=== PATIENT | female | born 2000 | race Caucasian/White ===

== ENCOUNTER → 2024-06-19 09:36 | Outpatient (CLI) | payer OTHER, SELFPAY ==
[2024-06-19 10:49] LABS: Add Manual Diff / Slide Review NO; Basophils Absolute Auto 0 /uL (0-100); Basophils Percent Auto 0.2 % (0-2); Eosinophils Absolute Auto 100 /uL (0-450); Eosinophils Percent Auto 1.3 % (2-4); Hematocrit 42.4 % (36-46); Lymphocytes Absolute Auto 1900 /uL (1100-4500); Lymphocytes Percent Auto 26.4 % (25-40); Mean Corpuscular HGB Conc 35.4 % (30-36); Mean Corpuscular Hemoglobin 29.2 PG (26-34); Mean Corpuscular Volume 82.4 fL (80-100); Monocytes Absolute Auto 400 /uL (0-900); Neutrophils Absolute Auto 4800 /uL (1500-7000); Neutrophils Percent Auto 67.1 % (50-75); Platelet Count 238 X10^3/uL (150-400); Red Blood Cell Count 5.15 X10^6/uL (4.0-5.2); Red Cell Distribution Width 13.1 % (11.6-14.8); White Blood Cell Count 7.1 X10^3/uL (4.5-11.0)
[2024-06-19 10:59] LABS: Hemoglobin A1C% w Est Avg Glu 4.7 % (4.0-6.0)
[2024-06-19 11:14] LABS: HEMOLYSIS < 15 (0-50); Iron 77 ug/dL (37-170)
[2024-06-19 11:16] LABS: Alanine Aminotransferase 23 IU/L (<35); Albumin Globulin Ratio 1.8 (1.0-2.8); Alkaline Phosphatase 65 U/L (38-126); Aspartate Aminotransferase 27 IU/L (14-36); BUN Creatinine Ratio 12.8 (6-22); Bilirubin Total 0.4 mg/dL (0.2-1.3); Blood Urea Nitrogen 10 mg/dL (7-17); Calcium 10.1 mg/dL (8.4-10.2); Carbon Dioxide 25 mmol/L (22-32); Chloride 105 mmol/L (98-107); Estimated Glomerular Filt Rate > 60 mL/min (>60); Globulin 2.8 g/dL (1.7-4.1); Glucose 100 mg/dL (70-100); HEMOLYSIS < 15 (0-50); Potassium 4.6 mmol/L (3.4-5.1); Sodium 141 mmol/L (137-145); Total Protein 7.8 g/dL (6.3-8.2)
[2024-06-19 11:27] LABS: Vitamin D 25 Hydroxy (D3) 36.8 ng/mL (30.0-100.0)
[2024-06-19 11:37] LABS: Transferrin 235 mg/dL (206-381)
[2024-06-19 11:42] LABS: TSH w/ Reflex to FT4 1.48 uIU/mL (0.47-4.68)
[2024-06-19 12:33] LABS: Vitamin B12 475 pg/mL (239-931)
== END ==
PROVIDERS: PCP Nurse Practitioner Family; Referring Provider Nurse Practitioner Family; Visit Provider Nurse Practitioner Family
DX: R53.83 Other fatigue (principal)
CPT/HCPCS: 36415; 80053; 82306; 82607; 83036; 83540; 83550; 84443; 85025

== ENCOUNTER → 2024-09-27 16:37 | Outpatient (CLI) | payer OTHER, SELFPAY ==
--- NOTE | 2024-09-27 16:38 | DI.RAD.S_ITS ---
PROCEDURE: XR FINGER RT MIN 2V INDICATIONS: Finger injury TECHNIQUE: AP hand, 2 views of the 4th finger(s) acquired. COMPARISON: None. FINDINGS: Bones: No fractures or dislocations. No suspicious bony lesions. Soft tissues: No suspicious soft tissue calcifications. IMPRESSION: No visualized acute fracture or dislocation. However, if clinical concern and/or pain persist, short interval imaging followup in 7-10 days is recommended, as occult injury cannot be definitively excluded. Dictated by: Nae Rodriguez M.D. on 09/27/2024 at 16:52 Approved by: Nae Rodriguez M.D. on 09/27/2024 at 16:55
== END ==
LOC: RAD 16:38
PROVIDERS: PCP Nurse Practitioner Family; Referring Provider Nurse Practitioner Family; Visit Provider Nurse Practitioner Family
DX: S69.91XA Unspecified injury of right wrist, hand and finger(s), initial encounter (principal); X58.XXXA Exposure to other specified factors, initial encounter
CPT/HCPCS: 73140

== ENCOUNTER → 2025-03-11 10:14 | Outpatient (CLI) | payer OTHER, SELFPAY ==
--- NOTE | 2025-03-11 10:15 | DI.RAD.S_ITS ---
PROCEDURE: XR HAND LT MIN 3V INDICATIONS: Left Hand Fracture TECHNIQUE: 3 views of the hand(s) acquired. COMPARISON: None. FINDINGS: Bones: Mildly displaced spiral fractures of the 2nd and 3rd mid metacarpal diaphyses appreciated. [place] of fracture angulation is approximately 20? in a dorsal direction both fractures Joints: Mild degeneration STT 1st CMC and all interphalangeal joints Soft tissues: No soft tissue abnormality. IMPRESSION: Mildly displaced and mildly angulated spiral fractures through the 2nd and 3rd metacarpal diaphyses Dictated by: Adin Camarena M.D. on 03/12/2025 at 10:10 Approved by: Adin Camarena M.D. on 03/12/2025 at 10:11
== END ==
PROVIDERS: PCP Nurse Practitioner Family; Referring Provider Orthopaedic Surgery Adult Reconstructive Orthopaedic Surgery; Visit Provider Orthopaedic Surgery Adult Reconstructive Orthopaedic Surgery
DX: S62.321A Displaced fracture of shaft of second metacarpal bone, left hand, initial encounter for closed fracture (principal); S62.323A Displaced fracture of shaft of third metacarpal bone, left hand, initial encounter for closed fracture; X58.XXXA Exposure to other specified factors, initial encounter
CPT/HCPCS: 73130; 99213

== ENCOUNTER → 2025-03-14 15:56 | Outpatient (CLI) | payer OTHER, SELFPAY ==
--- NOTE | 2025-03-14 15:56 | DI.RAD.S_ITS ---
PROCEDURE: XR HAND LT MIN 3V INDICATIONS: Evaluate Left Hand Fracture in splint TECHNIQUE: 3 views of the hand(s) acquired. COMPARISON: [facility], [place], XR HAND LT MIN 3V, 03/11/2025, 10:27. FINDINGS: Bones: No significant change in displaced fractures of the 2nd and 3rd metacarpal bones.. Carpal bones are normally aligned. No suspicious bony lesions. Soft tissues: No suspicious soft tissue calcifications. IMPRESSION: No significant change in displaced fractures of the 2nd and 3rd metacarpal bones. Dictated by: Vijay Hall M.D. on 03/14/2025 at 16:35 Approved by: Vijay Hall M.D. on 03/14/2025 at 16:36
== END ==
PROVIDERS: PCP Nurse Practitioner Family; Referring Provider Orthopaedic Surgery Adult Reconstructive Orthopaedic Surgery; Visit Provider Orthopaedic Surgery Adult Reconstructive Orthopaedic Surgery
DX: S62.303A Unspecified fracture of third metacarpal bone, left hand, initial encounter for closed fracture (principal); S62.301A Unspecified fracture of second metacarpal bone, left hand, initial encounter for closed fracture; X58.XXXA Exposure to other specified factors, initial encounter
CPT/HCPCS: 73130